=== PATIENT | female | born 1995 | race Caucasian/White ===

== ENCOUNTER 2021-11-28 19:38 | Emergency (ER) | payer OTHER ==
[~2021-11-28] VITALS: Ht 165.1 cm; Wt 54.4 kg
--- NOTE | 2021-11-28 19:38 | NUR ---
PT TOMI DINH, TAKEN TO CHAIR B
[2021-11-28 19:41] VITALS: BP 119/68
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
[2021-11-28 20:21] VITALS: BP 119/68
--- NOTE | 2021-11-28 20:22 | NUR ---
PATIENT [facility]. PATIENT EXAMINED BY KASEY. PATIENT MEDICALLY CLEARED AND RELEASED IN CUSTODY IN STABLE CONDITION. ORIGINAL PRE-BOOK FORM GIVEN TO OFFICER DARCI.
== END 2021-11-28 20:20 | disposition home or self-care (01) ==
LOC: MED 19:38
DX: Z02.89 Encounter for other administrative examinations (principal)
CPT/HCPCS: 99283